=== PATIENT | male | born 1945 ===

== ENCOUNTER 2023-10-06 09:12 | Outpatient (REF) | payer OTHER, SELFPAY | END 2023-10-06 09:13 | disposition home or self-care (01) | LOC: HO.LNP 09:12 | PROVIDERS: PCP Physician Assistant Medical; Referring Provider Physician Assistant Medical; Visit Provider Surgery | DX: D17.9 Benign lipomatous neoplasm, unspecified (principal) | CPT/HCPCS: 11602; 88304; 88305; 88341; 88342; 99202 ==

== ENCOUNTER 2023-10-06 09:12 | Outpatient (AMB) | payer OTHER, SELFPAY ==
--- NOTE | 2023-10-06 09:14 | A.OFFVIS_ITS ---
Vital Signs 10/06/23 09:25 Height 5 ft 5 in Weight 148 lb BMI 24.6 BP 129/63 Blood Pressure Location Rt brachial Position Sitting Pulse 62 Intake Visit Reasons: Cyst of left calf Intake Note: Patient referred by PCP Dr. Meraz for cyst on Lt calf. Present since April 2023. Patient c/o: feels burning sensation when pressing on it. Desk Top Publisher Required: No Accompanied by: spouse Jesse Allergies No Known Allergies Allergy (Verified 10/06/23 09:20) Medication List - Last Reconciled 10/06/23 by Fernando Gusman MD aspirin 81 mg PO DAILY chlorhexidine gluconate 0.12% 10 mL PO TID pantoprazole 40 mg PO DAILY rosuvastatin 40 mg PO DAILY HPI Comments Details: Patient presents with his . He posterior left mid calf mass x2 years time. It is increasing in size, become more symptomatic. He wished to have removed. He has no such lesions elsewhere. Although I think unrelated, he noticed this after his knee replacement proximally 2 years ago. Denies any known trauma to the area. Chart was reviewed and patient evaluated [facility] Medical History (Updated 10/06/23 @ 09:22 by URBAN Reed) Acid reflux HTN (hypertension) Surgical History (Updated 10/06/23 @ 10:15 by Fernando Gusman MD) H/O left knee surgery Family History (Updated 10/06/23 @ 09:24 by URBAN Reed) Father Colon cancer Social History (Updated 10/06/23 @ 09:24 by URBAN Reed) Household Members: Spouse Housing: House Alcohol intake: never Patient Tobacco Use Status: Never used Tobacco Physical Exam Vital Signs: Last Vital Signs Pulse 62 10/06/23 09:25 BP 129/63 10/06/23 09:25 BMI result Body Mass Index 24.6 Extrem Other: Proximally 3 x 2 cm subcutaneous soft tissue mass of left mid posterior calf. Office Procedures Excision Details: Risks, benefits, alternatives of wide local excision of posterior left mid calf mass reviewed the patient and included but not limited to bleeding, infection, recurrence, numbness, pain, scarring, dehiscence, seroma formation and the patient wished to proceed. All questions answered. Consent site. After appropriate positioning, patient underwent % lidocaine and Betadine prep and a longitudinal incision was made over the mass in question which was a multilobulated soft tissue mass consistent grossly with lipoma. This was taken down piecemeal fashion. Specimen measured approximately 3 x 2 cm in total. Wound was irrigated, secured hemostasis, and closed using running subcuticular 3-0 Vicryl suture followed by Steri-Strips and sterile dressings. Patient tolerated procedure well 50480-pecip/arms/legs 2.1-3cm Procedure code (CPT) selection complete Office Meds lidocaine 1 %-epinephrine 1:100,000 injection solution Performing Provider: Fernando Gusman MD Performing Location: [facility] [place] General Surgeons Administered by: Fernando Gusman MD on 10/06/23 10:13 Dose Route Admin Location Dispensed Lot Number Expiration Date [facility] Cleaner Signs 10 mL Infiltration 10 mL Assessment & Plan Assessment & Plan (1) Soft tissue mass: Code(s): M79.89 - Other specified soft tissue disorders Category: Surgical Plan: Patient has been given local instructions, and will follow-up as directed. It is including ice to the wound periodically, Tylenol or Motrin p.r.n. pain, elevate, avoid strenuous activities, it may shower in 2 days removing only outs rodrigue dressing leaving Steri-Strips intact. Plan See above Orders: Orders Surgical Today D17.9 - Benign lipomatous neoplasm, unspecified AMB Excision Today M79.89 - Other specified soft tissue disorders Medications: New lidocaine-epinephrine 1 %-1:100,000 10 mL Infiltration ONCE 30 mL 0RF M79.89 - Other specified soft tissue disorders Coding Level of Care Code New Pt Level 5 (59558) Diagnoses Soft tissue mass M79.89 CPT Codes Trunk/Arms/Legs - CPT: 47214-fownz/arms/legs 2.1-3cm ([id number])
[2023-10-06 09:25] VITALS: BP 129/63; PULSE 62; BMI 24.6
== END 2023-10-06 09:48 | disposition home or self-care (01) ==
PROVIDERS: PCP Physician Assistant Medical; Referring Provider Physician Assistant Medical; Visit Provider Surgery
DX: C49.22 Malignant neoplasm of connective and soft tissue of left lower limb, including hip (principal); M79.89 Other specified soft tissue disorders
CPT/HCPCS: 11602; 99204

== ENCOUNTER 2023-10-13 10:32 | Outpatient (AMB) | payer OTHER, SELFPAY ==
--- NOTE | 2023-10-13 10:48 | A.OFFVIS_ITS ---
Vital Signs 10/13/23 10:51 Height 5 ft 5 in Weight 148 lb BMI 24.6 BP 132/82 Blood Pressure Location Rt brachial Position Sitting Pulse 68 Intake Visit Reasons: s/p exision Cyst of left calf Intake Note: Patient here s/p exc on lt calf. Reports incision healing well. Patient c/o: tenderness but better than it was. Drill Foreman Required: No Accompanied by: Self / Same As Patient Allergies No Known Allergies Allergy (Verified 10/13/23 10:49) HPI Comments Details: Patient presents for follow-up. He has no wound issues or complaints. Results of his lesion pathology were reviewed demonstrating a sock, which requires wide local excision of the original tumor area. 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 All questions answered. 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
[2023-10-13 10:51] VITALS: BP 132/82; PULSE 68; BMI 24.6
== END 2023-10-13 10:59 | disposition home or self-care (01) ==
PROVIDERS: PCP Physician Assistant Medical; Visit Provider Surgery
DX: C49.22 Malignant neoplasm of connective and soft tissue of left lower limb, including hip (principal)
CPT/HCPCS: 99024

== ENCOUNTER → 2023-10-13 10:32 | Outpatient (BNVA) | payer OTHER, SELFPAY | PROVIDERS: PCP Physician Assistant Medical; Visit Provider Surgery | DX: C49.22 Malignant neoplasm of connective and soft tissue of left lower limb, including hip (principal) | CPT/HCPCS: 99212 ==

== ENCOUNTER 2023-11-13 10:50 | Day surgery (SDC) | payer OTHER, SELFPAY ==
[2023-11-10 16:21] VITALS: BMI 23.5
--- NOTE | 2023-11-12 11:14 | MHC.SHP ---
Pre-Procedural Eval Section A - 24 Hr Update-Section A only Date of Service: 11/12/23 The patient is an INPATIENT: No Changes since office visit: No Cold of Flu in the past 2 weeks, No New Medical Problems, No Changes in Medication and No Patient answered all questions Section B - Complete if H&P > 30 days Chief Complaint: Malignant neoplasm of connective and soft tissue Allergies: Allergies Allergy/AdvReac Type Severity Reaction Status Date / Time No Known Allergies Allergy Verified 10/13/23 10:49 Plan I have reviewed the history and physical and performed a pertinent physical examination on my patient. No changes have occurred unless specified. Time Spent With Patient Time: Total time managing care of this patient today ____ minutes.
--- NOTE | 2023-11-12 14:19 | HO.ANESPROP2 ---
Documented by User: Sandy Do NP 11/12/23 14:26 HPI - Anesthesia Eval Consult details Narrative: 78yo M for Left Wide Local Excision Soft Tissue on Posterior Calf [facility]. Last office visit 04/2023, stable for 1 year f/u. 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 (Acute) Soft tissue mass (Acute) Past Medical History Medical History History of gastric cancer Arthritis Cataracts, bilateral Dental root implant present (07/10/23) BPH (benign prostatic hyperplasia) History of nephrolithiasis DJD (degenerative joint disease) History of gastric cancer GERD (gastroesophageal reflux disease) Low back pain Vascular dementia PTSD (post-traumatic stress disorder) AAA (abdominal aortic aneurysm) Elevated cholesterol Acid reflux HTN (hypertension) Family History Family History Father Colon cancer Surgical History Surgical History H/O heart artery stent Hx of colonoscopy History of ureteroscopy (~04/2023) History of total left knee replacement (TKR) (~03/2023) History of gastric surgery History of total right knee replacement (TKR) (~2012) Social History Social History Household Members: Spouse Housing: House Are you a primary patient care provider to a significant other at home: No Do you presently have visiting nurse or other home services: No Alcohol intake: never Patient Tobacco Use Status: Never used Tobacco Use of substances other than those prescribed or required for medical reasons: No Are you DNR?: No Advance Directives: No Advance Directives Information Provided: Yes Advance Directives on File: No Recently lost weight without trying: No Nutrition Risks: No Nutritional Risk Meds Allergies Allergy/AdvReac Type Severity Reaction Status Date / Time No Known Allergies Allergy Verified 10/13/23 10:49 Home Medications ?Medication ?Instructions ?Recorded ?Confirmed ?Last Taken ?Type aspirin 81 mg tablet,delayed 81 mg PO DAILY 10/06/23 11/10/23 Unknown History release rosuvastatin 40 mg tablet 40 mg PO BEDTIME 10/06/23 11/10/23 Unknown History losartan 25 mg tablet 25 mg PO BID 11/10/23 11/10/23 Unknown History memantine 10 mg tablet 10 mg PO QPM 11/10/23 11/10/23 Unknown History nitroglycerin 0.4 mg sublingual 0.4 mg sublingual Q5M PRN Chest 11/10/23 11/10/23 Unknown History tablet Pain omeprazole 20 mg capsule,delayed 20 mg PO DAILY 11/10/23 11/10/23 Unknown History release Exam Height,Weight and Vital Signs: Height 5 ft 5 in Weight 63.957 kg Narrative Narrative: EKG 02/2023 NSR LAD Assessment and Plan Assessment Anesthesia Assessment: Chart Reviewed Documented by User: Jessy De Dios MD 11/13/23 11:47 HPI - Anesthesia Eval Consult details Narrative: 78yo M for Left Wide Local Excision Soft Tissue on Posterior Calf Tumor [facility] 2005. Last office visit 04/2023, stable for 1 year f/u. Medically optimized per [facility] preop clinic prior to TKA 03/2023 Stable at PCP visit 09/202311/13/23: Patient had excisionof Left calf tumor 10/06/23. Pathology revealed high grade sarcoma. For wide local excision PMFSH Past Medical History Medical History History of gastric cancer Arthritis Cataracts, bilateral Dental root implant present (07/10/23) BPH (benign prostatic hyperplasia) History of nephrolithiasis DJD (degenerative joint disease) History of gastric cancer GERD (gastroesophageal reflux disease) Low back pain Vascular dementia PTSD (post-traumatic stress disorder) AAA (abdominal aortic aneurysm) Elevated cholesterol Acid reflux HTN (hypertension) Family History Family History Father Colon cancer Family history of problems with anesthesia: No Surgical History Surgical History H/O heart artery stent Hx of colonoscopy History of ureteroscopy (~04/2023) History of total left knee replacement (TKR) (~03/2023) History of gastric surgery History of total right knee replacement (TKR) (~2012) History of Problems with Anesthesia: No Social History Social History Household Members: Spouse Housing: House Are you a primary patient care provider to a significant other at home: No Do you presently have visiting nurse or other home services: No Alcohol intake: never Patient Tobacco Use Status: Never used Tobacco Use of substances other than those prescribed or required for medical reasons: No Are you DNR?: No Advance Directives: No Advance Directives Information Provided: Yes Advance Directives on File: No Recently lost weight without trying: No Nutrition Risks: No Nutritional Risk Meds Allergies Allergy/AdvReac Type Severity Reaction Status Date / Time No Known Allergies Allergy Verified 10/13/23 10:49 Home Medications ?Medication ?Instructions ?Recorded ?Confirmed ?Last Taken ?Type aspirin 81 mg tablet,delayed 81 mg PO DAILY 10/06/23 11/10/23 Unknown History release rosuvastatin 40 mg tablet 40 mg PO BEDTIME 10/06/23 11/10/23 Unknown History losartan 25 mg tablet 25 mg PO BID 11/10/23 11/10/23 Unknown History memantine 10 mg tablet 10 mg PO QPM 11/10/23 11/10/23 Unknown History nitroglycerin 0.4 mg sublingual 0.4 mg sublingual Q5M PRN Chest 11/10/23 11/10/23 Unknown History tablet Pain omeprazole 20 mg capsule,delayed 20 mg PO DAILY 11/10/23 11/10/23 Unknown History release Exam Height,Weight and Vital Signs: Height 5 ft 5 in Weight 63.957 kg Vital Signs Temp Pulse Resp BP Pulse Ox O2 Del Method 11/13/23 11:20 98.2 F 62 18 121/59 L 96 Room Air Airway Mallampati Class: II TM Dist: >3cm Neck ROM: Full Loose/Missing/Broken Teeth: Yes (Some teeth missing. Denies broken or loose teeth) Heart: RRR Lungs: CTAB Assessment and Plan Assessment Anesthesia Assessment: Anesthesia Plan Discussed and Chart Reviewed Final Anesthetic Review Family History of Problems with Anesthesia: No History of Problems with Anesthesia: No NPO: Yes ASA Class: III Final Preanesthetic Review: No Changes in Pt Med Stat, Meds/Allgs Chart Reviewed, Consent Obtained/Reviewed and Anes Risks/Benef Reviewed Patient Risk: Intermediate Procedure Risk: Low Assessment/Block/Sedation in SS: Assess/Block/Sedation-SS Anesthetic Plan Anesthetic Plan: GA and TIVA Disposition: Standard PACU
[2023-11-13 11:01] VITALS: BMI 24.0
[2023-11-13 11:20] VITALS: BP 121/59; PULSE 62; RESP 18; TEMP 36.8; O2SAT 96
--- NOTE | 2023-11-13 12:30 | W.PM.OPN ---
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 Patient presents for wide local excision. Patient underwent circumferentially 2 cm margin as well as deep margin including the muscle fascia. Final specimen measured approximately 8 x 4 cm. Findings: [] Patient brought to the operating room, placed on operative table supine position, after an adequate level of MAC anesthesia was induced, patient was placed in the prone position. Posterior calf was prepped and draped in usual sterile fashion. Using a longitudinal by elliptical incision to measured 2 cm margin circumferentially, this carried down through skin, subcutaneous tissue, down to muscle fascia which was included in the specimen. Specimen was tagged and sent to pathology for permanent evaluation. Wound was irrigated, secured hemostasis after medial and lateral skin flaps were developed using Bovie. Wound was closed in the following manner; interrupted inverted dermal 3-0 Vicryl sutures followed by Steri-Strips and sterile dressings were applied. Wound was infiltrated at the beginning and at the end with 0.5% Marcaine/1% lidocaine. Sponge, needle, and instrument counts were reported correct. Patient tolerated the procedure well and emerged from anesthesia stable condition. EBL minimal
[2023-11-13 12:34] VITALS: BP 114/60; PULSE 59; RESP 18; TEMP 36.4
[2023-11-13 12:49] VITALS: BP 102/66; PULSE 54; RESP 20; O2SAT 96
[2023-11-13 13:04] VITALS: BP 119/62; PULSE 52; RESP 16; TEMP 36.5; O2SAT 98
--- OUTSIDE RECORDS SUMMARY | 2023-11-14 11:15 | XMS_ITS | Continuity of Care Document ---
Author Organization [facility] Address [address] [place] [address]- Care Team Providers Care Pharmacy Customer Care Specialist Name Role Phone Praful Torres III Primary Care Physician [phone] Encounter 03/23/23 - 03/31/23 [facility] [address] [place] [address]- Discharge Disposition: GOALS MET Allergies, Adverse Reactions, Alerts No Known Allergies Immunizations Given and Recorded Vaccine Date Status Refusal Reason Influenza Virus Vaccine (oldterm) 03/04/19 Recorde d Influenza Virus Vaccine (oldterm) 02/16/19 Recorde d influenza virus vaccine, inactivated 04/11/12 Give n influenza virus vaccine, inactivated 04/11/10 Give n influenza virus vaccine, inactivated 1 03/16/09 Gi je pneumococcal 23-valent vaccine 04/11/12 Given Tet/Diphth/Acel, Pertussis (oldterm) 10/05/08 Give n Pneumococcal Poly (PPV23) (oldterm) 04/14/06 Given diphtheria-tetanus toxoids (DT) 05/09/97 Given 1Admin Note: vis 01/17/09 Medications acetaminophen 325 mg oral tablet 650 mg, By Mouth, Every 6 hours, Refills 0, Maintenance, 03/22/23 7:38:00 EDT, Partial fill upon patient request if the prescription is for a schedule II opioid drug. Start Date: 03/22/23 Status: Ordered aspirin 162.5 mg oral capsule, extended release = 325 mg, By Mouth, 2 times a day, # 60 capsule, 0 Refills, Maintenance, 03/22/23 7:37:00 EDT, ER Capsule, [facility], Partial fill upon patient request if the prescription is for a schedule II opioid drug., 167, cm, 03/22/23 6:32:00 EDT... Start Date: 03/22/23 Stop Date: 04/21/23 Status: Ordered Crestor 40 mg oral tablet 1 tablet = 40 mg, By Mouth, Daily, # 30 tablet, 0 Refills, Maintenance, 01/11/19 15:28:31 EDT Start Date: 01/11/19 Status: Ordered docusate sodium 100 mg oral capsule 1 capsule = 100 mg, By Mouth, 2 times a day, # 60 capsule, 0 Refills, Maintenance, 03/22/23 7:39:00EDT, Capsule, [facility], Partial fill upon patient request if the prescription is for a schedule II opioid drug., 167, cm, 03/22/23 6:32... Start Date: 03/22/23 Status: Ordered losartan 50 mg oral tablet 1 tablet = 50 mg, By Mouth, 2 times a day, # 180 tablet, 3 Refills, Maintenance, 04/25/20 14:01:00 EST, Partial fill upon patient request Start Date: 04/25/20 Status: Ordered memantine 10 mg oral tablet 1 tablet = 10 mg, By Mouth, Daily, # 30 tablet, 0 Refills, Maintenance, 01/18/22 17:34:00 EDT, Tablet, Partial fill upon patient request if the prescription is for a schedule II opioid drug. Start Date: 01/18/22 Status: Ordered omeprazole 20 mg oral enteric coated tablet 1 tablet = 20 mg, By Mouth, Daily, [id number], # 90 tablet, 1 Refills, Maintenance, 11/17/14 13:08:33, 1 tablet By Mouth Daily,x90 days,[id number] Start Date: 11/17/14 Stop Date: 05/16/15 Status: Ordered pantoprazole 40 mg oral delayed release tablet = 40 mg, By Mouth, Daily, # 30 tablet, 0 Refills, Maintenance, 03/22/23 7:39:00 EDT, EC Tablet, 167, cm, 03/22/23 6:32:00 EDT, Height, 66, kg, 03/21/23 17:14:00 EDT, Dry Weight Start Date: 03/22/23 Stop Date: 04/21/23 Status: Ordered Problem List Condition Confirmation Course Effective Dates Status H ealth Status Informant BPH (benign prostatic hypertrophy) Confirmed Active Coronary artery disease (CAD) Confirmed 11/20/05 Active Elevated prostate specific antigen measurement Confirmed Active Esophageal Reflux Confirmed Active GIST (gastrointestinal stromal tumor), 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 History of esophageal stricture Confirmed 1993 Active HTN (hypertension) Confirmed Active Hx of colonic polyp Confirmed 1998 Active Hyperlipidemia NOS Confirmed Active Low back pain Confirmed Active Social History Social History Type Response Smoking Status Never smoker entered on: 11/30/14 Sex Patient Care team information Care Team Personnel Name: Maite Juárez RN Position: [facility] RN Member Role: Primary Care Nurse Name: Praful Torres III Position: Reference Physician Member Role: PCP Address: Address: [address] [place] [id number] Name: Landy Nolan RN Position: S RN Member Role: Primary Care Nurse Name: Cynthia Herrera RN Position: S RN Member Role: Primary Care Nurse Name: Yani Crain RN Position: S RN Member Role: Primary Care Nurse Care Team Related Persons Name: NICOLE SWANN Address: [place] [address] Name: GLORIA SWANN Address: home [address] [place] [address]
--- OUTSIDE RECORDS SUMMARY | 2023-11-14 11:15 | XMS_ITS | Continuity of Care Document ---
Author Organization [facility] Address [address] [place] [address]- Care Team Providers Care Frit Mixer Name Role Phone Dereje THOMPSON, Vipul Gonzales Primary Care Physician [phone] Encounter [facility] Date(s): 03/03/23 - 03/10/23 [facility] [address] [place], [place] [address] Attending Physician: Stewart Dominguez MD Admitting Physician: Stewart Dominguez MD Referring Physician: Dave Nash MD Allergies, Adverse Reactions, Alerts No Known Allergies [...] 05/09/97 Given 1Admin Note: vis 01/17/09 Medications aspirin 81 mg oral tablet 1 tablet = 81 mg, By Mouth, Daily, # 90 tablet, 0 Refills, Maintenance, Tablet Start Date: 06/05/11 Status: Ordered Crestor 40 mg oral tablet 1 tablet = 40 mg, By Mouth, Daily, # 30 tablet, 0 Refills, Maintenance, 01/11/19 15:28:31 EDT Start Date: 01/11/19 Status: Ordered losartan 50 mg oral tablet [...] tablet = 20 mg, By Mouth, Daily, [id number], # 90 tablet, 1 Refills, Maintenance, 11/17/14 13:08:33, 1 tablet By Mouth Daily,x90 days,[id number] Start Date: 11/17/14 Stop Date: 05/16/15 Status: Ordered Problem List Condition Confirmation Course [...] Confirmed Active Low back pain Confirmed Active Vital Signs Most recent to oldest [Reference Range]: 1 Height 167.6 cm (03/03/23 1:45 PM) Weight 63.3 kg (03/03/23 1:45 PM) Oxygen Saturation [94-100 %] 100 % (03/03/23 1:45 PM) Pulse Rate [55-90 bpm] 74 bpm (03/03/23 1:45 PM) Body Mass Index [18.5-24.99 kg/m2] 22.53 kg/m2 (03/03/23 1:45 PM) Blood Pressure [90-138/55-84 mm Hg] 117/ 58mm Hg (03/03/23 1:45 PM) Respiratory Rate [16-30 br/min] 16 br/mi n (03/03/23 1:45 PM) Blood pressure sites Arm, left (03/03/23 1:45 PM) Weight Obtained Via Standing scale (03/03/23 1:45 PM) Social History Social History Type Response Smoking Status Never smoker entered on: 11/30/14 Sex EKG study * Event Display: ECG 12-Lead Authored Date: Please click on pdf link to open report * Event Display: ECG 12-Lead Authored Date: Ventricular Rate: 63 BPM Atrial Rate: 63 BPM P-R Interval: 176 ms QRS Duration: 94 ms Q-T Interval: 416 ms QTC Calculation(Bazett): 425 ms P Sumner: 6 degrees R Sumner: -40 degrees T Sumner: 39 degrees Normal sinus rhythm Left axis deviation Abnormal ECG When compared with ECG of 29-MAY-2012 13:33, Nonspecific T wave abnormality, improved in Lateral leads Confirmed by MARLA KING MD ([id number]) on 03/03/2023 4:06:57 PM [place]: MARLA KING MD Patient Care team information Care Team Personnel Name: Dereje THOMPSON, Vipul Gonzales Position: [facility] Physician - Primary Care Member Role: PCP Address: Address: [address] [place] [address]- Name: Maite Juárez RN Position: [facility] RN Member Role: Primary Care Nurse Name: Cynthia Herrera RN Position: S RN Member Role: Primary Care Nurse Name: Yani Crain RN Position: [facility] RN Member Role: Primary Care Nurse Care Team Related Persons Name: NICOLE SWANN Address: [place] [address] Name: GLORIA SWANN Address: home [address] [place] [address]
--- OUTSIDE RECORDS SUMMARY | 2023-11-14 11:15 | XMS_ITS | Continuity of Care Document ---
Author Organization [facility] ter Address [address] [place] [id number]- Care Team Providers Care Vegetable Farming Supervisor Name Role Phone Mariya FONTANEZ, Praful Yo Primary Care Physician Encounter [facility] Date(s): 02/28/23 - 03/30/[address] [address] Attending Physician: AdmLaurie roman Admitting Physician: Admtr, Ar8 Referring Physician: Admtr, Ar8 Allergies, Adverse Reactions, Alerts No Known Allergies [...] Refills, Maintenance, 03/22/23 7:37:00 EDT, ER Capsule, [facility], Partial fill upon patient [...] capsule, 0 Refills, Maintenance, 03/22/23 7:39:00EDT, Capsule, [facility], Partial fill upon patient [...] tablet = 20 mg, By Mouth, Daily, [id number], # 90 tablet, 1 Refills, Maintenance, 11/17/14 13:08:33, 1 tablet By Mouth Daily,x90 days,[id number] Start Date: 11/17/14 Stop Date: 05/16/15 Status: [...] Team Personnel Name: Maite Juárez RN Position: [facility] SN RN Member Role: Primary Care Nurse Name: Praful Torres III Position: Reference Physician Member Role: PCP Address: Address: [address] [place] [id number]- Name: Landy Nolan RN Position: S RN Member Role: Primary Care Nurse Name: Cynthia Herrera RN Position: S RN Member Role: Primary Care Nurse Name: Yani Crain RN Position: S RN Member Role: Primary Care Nurse Care Team Related Persons Name: NICOLE SWANN Address: [place] [address] Name: GLORIA SWANN Address: home [address] [place] [address]
--- OUTSIDE RECORDS SUMMARY | 2023-11-14 11:15 | XMS_ITS | Continuity of Care Document ---
Author Organization [facility] Address [address] [place] [address]- Care Team Providers Care Green Inspector Name Role Phone Mariya FONTANEZ, Praful Yo Primary Care Physician [phone] Encounter [facility] [place] [id number] Date(s): 03/03/23 - 04/02/23 [facility] [address] [place] [address]- Attending Physician: AdmLaurie roman Admitting Physician: Admtr, [...] Refills, Maintenance, 03/22/23 7:37:00 EDT, ER Capsule, [facility], Partial fill upon patient [...] capsule, 0 Refills, Maintenance, 03/22/23 7:39:00EDT, Capsule, [facility], Partial fill upon patient [...] tablet = 20 mg, By Mouth, Daily, [id number], # 90 tablet, 1 Refills, Maintenance, 11/17/14 13:08:33, 1 tablet By Mouth Daily,x90 days,[id number] Start Date: 11/17/14 Stop Date: 05/16/15 Status: [...] Team Personnel Name: Maite Juárez RN Position: [facility] SN RN Member Role: Primary Care Nurse Name: Praful Torres III Position: Reference Physician Member Role: PCP Address: Address: [address] [place] [id number]- Name: Landy Nolan RN Position: S RN Member Role: Primary Care Nurse Name: Cynthia Herrera RN Position: S RN Member Role: Primary Care Nurse Name: Yani Crain RN Position: S RN Member Role: Primary Care Nurse Care Team Related Persons Name: NICOLE SWANN Address: [place] [address] Name: GLORIA SWANN Address: home [address] [place] [address]
--- OUTSIDE RECORDS SUMMARY | 2023-11-14 11:15 | XMS_ITS | Continuity of Care Document ---
Author Organization [facility] ter Address [address] [place] [id number]- Care Team Providers Care Pelletising Extruder Operator Name Role Phone Vipul Reyez MD Primary Care Physician Encounter [facility] Date(s): 07/29/19 - 07/29/[address] [address]- [facility] Attending Physician: Vipul Reyez MD Allergies, Adverse Reactions, Alerts Substance Reaction Severity Status NKA Active Immunizations Given and Recorded Vaccine Date Status Refusal Reason Influenza Virus Vaccine (oldterm) 03/04/19 Recorde d influenza virus vaccine, inactivated 04/11/12 [...] 15:28:31 EDT Start Date: 01/11/19 Status: Ordered Flomax 0.4 mg oral capsule 0.4 mg, 1, capsule, By Mouth, Daily, # 15 capsule, Refills 0, Tot. Refills 0, Maintenance, 195:06:05 EST, Print Requisition Start Date: 05/05/19 Status: Ordered losartan 25 mg oral tablet 25 mg, 1, tablet, By Mouth, Daily, # 30 tablet, Refills 0, Maintenance, 01/11/19 15:08:46 EDT Start Date: 01/11/19 Status: Ordered omeprazole 20 mg oral enteric coated tablet 1 tablet = 20 mg, By Mouth, Daily, [id number], # 90 tablet, 1 Refills, Maintenance, 11/17/14 13:08:33, 1 tablet By Mouth Daily,x90 days,[id number] Start Date: 11/17/14 Stop Date: 05/16/15 Status: Ordered Zetia 10 mg oral tablet 1 tablet = 10 mg, By Mouth, Daily, # 90 tablet, 3 Refills, Maintenance, 07/29/19 20:46:00 EST, Tablet, [id number], 168, cm, 07/16/19 11:36:00 EST, Height, 68.2, kg, 05/07/19 7:36:00 EST, Dry Weight Start Date: 07/29/19 Status: Ordered Zofran ODT 4 mg oral tablet, disintegrating 1 tablet = 4 mg, By Mouth, 3 times a day, (allow tablet to dissolve on tongue), # 10 tablet, 0 Refills, Maintenance, 05/05/19 5:06:13 EST Start Date: 05/05/19 Status: Ordered Problem List Condition Effective Dates Status Health Status Inform ant BPH (benign prostatic hypertrophy)(Confirmed) Active Coronary artery disease (CAD)(Confirmed) 11/20/05 Active Elevated prostate specific a ntigen measurement(Confirmed) Active Esophageal Reflux(Confirmed) Active GIST (gastrointestinal edenilson al tumor), 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
--- OUTSIDE RECORDS SUMMARY | 2023-11-14 11:15 | XMS_ITS | Continuity of Care Document ---
Author Organization [facility] ter Address [address] [place] [id number]- Care Team Providers Care Sales And Marketing Intern Name Role Phone Mariya FONTANEZ, Praful Yo Primary Care Physician [phone] Encounter [facility] Date(s): 03/21/23 - 03/22/[address] [address] Discharge Disposition: A-Transfer VNA/Home Health Attending Physician: Dave Nash MD Admitting Physician: Dave Nash MD Referring Physician: Dave Nash MD Allergies, [...] opioid drug. Start Date: 03/22/23 Status: Ordered Acetaminophen Tablet 650 mg, Tablet, By Mouth, 03/22/23 10:00:00 EDT Start Date: 03/22/23 Stop Date: 03/22/23 Status: Completed aspirin 162.5 mg oral capsule, extended release = 325 mg, By Mouth, 2 times a day, # 60 capsule, 0 Refills, Maintenance, 03/22/23 7:37:00 EDT, ER Capsule, [facility], Partial fill upon patient request [...] capsule, 0 Refills, Maintenance, 03/22/23 7:39:00EDT, Capsule, [facility], Partial fill upon patient request [...] tablet = 20 mg, By Mouth, Daily, [id number], # 90 tablet, 1 Refills, Maintenance, 11/17/14 13:08:33, 1 tablet By Mouth Daily,x90 days,[id number] Start Date: 11/17/14 Stop Date: 05/16/15 Status: Ordered oxyCODONE 5 mg oral tablet See Instructions, PRN, 1-2 tablets By Mouth Every 4 hours, # 84 tablet, Refills 0, Tot. Refills 0, Acute 03/28/23 7:41:00 EDT, Pain , Moderate, 03/22/23 7:40:00 EDT, Instructions Replace Required Details, Route to Pharmacy Electronically, [facility]... Start Date: 03/22/23 Stop Date: 03/28/23 Status: Ordered pantoprazole 40 mg oral delayed release tablet = 40 mg, By Mouth, Daily, # 30 tablet, 0 Refills, Maintenance, 03/22/23 7:39:00 EDT, EC Tablet, 167, cm, 03/22/23 6:32:00 EDT, Height, 66, kg, 03/21/23 17:14:00 EDT, Dry Weight Start Date: 03/22/23 Stop Date: 04/21/23 Status: Ordered traMADol 50 mg oral tablet See Instructions, PRN Pain , Mild, 1-2 tablets By Mouth Every 6 hours, # 56 tablet, 0 Refills, Acute 03/28/23 7:41:00 EDT, 03/22/23 7:41:00 EDT, Tablet, [facility], Partial fill upon patient request if the prescription is for a schedule... Start Date: 03/22/23 Stop Date: 03/28/23 Status: Ordered Problem List Condition Confirmation Course [...] Confirmed Active Low back pain Confirmed Active Results Radiology Reports * Exam Date Time Procedure Performing Provider Status 03/21/23 3:40 PM Knee 1 or 2 Views Left Winston Velasquez ine; Auth (Verified) Notes: (Knee 1 or 2 Views Left) Reason For Exam: Postop RESULT: Knee 1 or 2 Views Left Knee 1 or 2 Views Left, views Reason: Postop; Clinical Question(s): Other:; Implant Position; Special Instructions: Do today in pacu No flexed knee in the lateral position. Keep leg straight; 2 Views COMPARISON: 10/17/2008 FINDINGS: A total left knee arthroplasty is in place. The hardware parallels one another. There is no fracture. There is a stable 1.5 cm well-corticated bony density adjacent to the anterior aspect of the tibial plateau. IMPRESSION: Well seated total left knee arthroplasty. WSN: [id number] Ordering Physician: Carroll Aguilar V Dictated By: Daniel Martínez MD Dictated Date/Time: 03/21/23 3:46 pm Reviewed By: Daniel Martínez MD Signed By: Daniel Martínez MD Signed Date/Time: 03/21/23 3:46 pm Transcribed By: ARLETH Transcribed Date/Time: 03/21/23 3:45 pm Vital Signs Most recent to oldest [Reference Range]: 1 2 3 Height 167 cm (03/22/23 12:00 PM) 167 cm (03/22/23 6:32 AM) 167 cm (03/22/23 3:48 AM) Weight 66 kg (03/21/23 5:14 PM) 65.3 kg (03/21/23 10:00 AM) Oxygen Saturation [94-100 %] 99 % (03/22/23 12:00 PM) 99 % (03/22/23 6:32 AM) 97 % (03/22/23 3:48 AM) Pulse Rate [55-90 bpm] 70 bpm (03/22/23 12:00 PM) 61 bpm (03/22/23 6:32 AM) 65 bpm (03/22/23 3:48 AM) Body Mass Index [18.5-24.99 kg/m2] 23.67 kg/m2 (03/21/23 5:14 PM) 23.41 kg/m2 (03/21/23 10:00 AM) Blood Pressure [90-138/55-84 mm Hg] 126/60mm Hg (03/22/23 12:00 PM) 119/67mm Hg (03/22/23 6:32 AM) 123/66mm Hg (03/22/23 3:48 AM) Respiratory Rate [16-30 br/min] 18 br/min (03/22/23 12:00 PM) 18 br/min (03/22/23 11:49 AM) 18 br/min (03/22/23 6:32 AM) Temperature [96.8-100.4 DegF] 97.5 DegF (03/22/23 12:00 PM) 97.8 DegF (03/22/23 6:32 AM) 97.9 DegF (03/22/23 3:48 AM) Liters per Minute 5 L/min (03/21/23 3:15 PM) Mode of Delivery (Oxygen) Room air (03/22/23 12:00 PM) Room air (03/22/23 6:32 AM) Room air (03/22/23 3:48 AM) Blood pressure sites Arm, right (03/22/23 12:00 PM) Arm, right (03/22/23 6:32 AM) Arm, right (03/22/23 3:48 AM) Temperature Route Oral (03/22/23 12:00 PM) Oral (03/22/23 6:32 AM) Axillary (03/22/23 3:48 AM) Dry Weight 66 kg (03/21/23 5:14 PM) 65.3 kg (03/21/23 10:00 AM) Weight Obtained Via Standing scale (03/21/23 10:00 AM) Dry Weight Obtained Via Standing scale (03/21/23 10:00 AM) Social History Social History Type Response Smoking Status Never smoker entered on: 11/30/14 Sex History and physical note * Event Display: History and Physical Hospital Authored Date: Note * Event Display: Adult Preadmission Health Questionnaire Authored Date: * Lucia Nelson RN: PERFORM Event Display: Discharge/Transfer Note Hospital Authored Date: [id number] Nursing Discharge Note Entered On: 03/22/2023 13:55 EDT Performed On: 03/22/2023 13:55 EDT by Lucia Nelson RN Nursing Discharge Note 2 Discharge Time : 03/22/2023 13:50 EDT Discharge Level of Care at Discharge : Homehealth/VNA Discharge VNA/Hospice/Home Care(v001) : [facility] [phone] Patient Left Unit Via : Wheelchair Patient Accompanied Off Unit with : Significant other DC Instructions Provided & Signed by Pt : Yes Patient Understands D/C Instructions : Yes Patient Instructions Discharge Signed : Yes Did Pt have Specialty Bed or Wound Vac : No Lucia Nelson RN - 03/22/2023 13:55 EDT * Michelle Patel: PERFORM Event Display: Discharge/Transfer Note Hospital Authored Date: [id number] Admission Date: 03/21/23 Discharge Date: 03/22/23 Admitting Diagnosis: left knee osteoarthritis Discharge Diagnosis: left knee osteoarthritis Final Diagnosis: left knee osteoarthritis Procedure: left total knee arthroplasty Surgeon: Dr. Nash Past Medical History: 1. Osteoarthritis of the left knee. 2. Hypertension. 3. Hyperlipidemia. 4. GERD. 5. Esophageal dysphagia. 6. History of kidney stones. 7. CAD, status post PCI in 2005. 8. BPH. 9. PTSD. 10. History of hematuria. 11. Chronic fatigue. 12. Vascular dementia. 13. History of gastric cancer, status post tumor removal. 14. Cataracts. 15. Chronic kidney disease stage III with preoperative creatinine 1.7, BUN 21, GFR 41. 16. Prediabetes with preoperative A1c 5.7. Orthopedics: The patient is status post left total knee arthroplasty. It is anticipated that they will be discharged home today pending PT, OT clearance. The patient is doing well from a surgical standpoint. Incision is healing well. Neurovascular status is intact. Calves are supple and non tender.Making good progress with Physical Therapy and Occupational therapy. Supervision with ambulation ambulating with a walker. ROM . Pain is well controlled on current regimen, Oxycodone, Tramadol, and Tylenol. Patient is tolerating this well. They will be sent home with a prescription for this medication. Prescription: Tramadol 50 mg tablet. Take 1-2 tablets every 6 hours as needed for pain x 7 days. # 56 tablet. Oxycodone IR 5mg tablet. Take 1-2 tablets every 4 hours as needed for pain x 7 days. # 84 tablet. Hospital course: Relatively uneventful medically. Pain is controlled now. Patient is voiding spontaneously. + bowel sounds. . No other issues. No calf tenderness. Current Medication List: Acetaminophen (acetaminophen 325 mg oral tablet) 650 Milligram By Mouth Every 6 hours Aspirin (aspirin 162.5 mg oral capsule, extended release) 325 Milligram By Mouth 2 times a day for 30 Days Docusate (docusate sodium 100 mg oral capsule) 1 capsule 100 Milligram By Mouth 2 times a day Losartan (losartan 50 mg oral tablet) 1 tab(s) 50 Milligram By Mouth 2 times a day Memantine (memantine 10 mg oral tablet) 1 tab(s) 10 Milligram By Mouth Daily Omeprazole (omeprazole 20 mg oral enteric coated tablet) 1 tab(s) 20 Milligram By Mouth Daily for 90 Days [id number] Oxycodone (oxyCODONE 5 mg oral tablet) See Instructions as needed 1-2 tablets By Mouth Every 4 hours Pain , Moderate Pantoprazole (pantoprazole 40 mg oral delayed release tablet) 40 Milligram By Mouth Daily for 30 Days Rosuvastatin (Crestor 40 mg oral tablet) 1 tab(s) 40 Milligram By Mouth Daily Tramadol (traMADol 50 mg oral tablet) See Instructions as needed Pain , Mild 1-2 tablets By Mouth Every 6 hours Allergies: Allergies (Active and Proposed Allergies Only) NKA (Severity: Unknown severity, Onset: Unknown) Current Labs: Last 24 Hours Basic Metabolic Panel: Hematology: Sodium: 135 mmol/L (03/22/23) Hgb: 12.5 Gm/dL (03/22/23) Potassium (POC): 4.6 mmol/L (03/22/23) Hemoglobin A1C (Monitoring): ------ Phosphorus: ------ WBC: 10.4 k/mm3 (03/22/23) Magnesium: ------ Platelets: 161 k/mm3 (03/22/23) BUN (POC) POC Cartridge: 21 mg/dL (03/22/23) INR Level: ------ Creatinine-Blood: 1.4 mg/dL (03/22/23) Creatinine Clearance: ------ Additional - Last 24 Hours Abs. NRBC: 0.0 k/mm3 (03/22/23) Anion Gap: 11 (03/22/23) Bicarbonate Level: 20 mmol/L (03/22/23) BUN: BUN (03/22/23) Chloride: 104 mmol/L (03/22/23) Creatinine, Blood: Creatinine, Blood (03/22/23) Est Creatinine Clearance: 40.14 (03/22/23) Estimated GFR Creatinine: 52 ML/MIN/1.73 M2 (03/22/23) Hct: 39.3 % (03/22/23) MCH: 29.4 pg (03/22/23) MCHC: 31.8 g/dL (03/22/23) MCV: 92.5 femtoliters (03/22/23) MPV: 12.3 femtoliters (03/22/23) Nucleated RBC (Automated): 0.0 #/100 WBC'S (03/22/23) RBC: 4.25 m/mm3 (03/22/23) RDW-SD: 42.5 femtoliters (03/22/23) DVT prophylaxis ASA EC 325 mg po bid x 30 days Disposition: Anticipates being discharged today to home. Follow up at [facility] in 2 weeks. Patient is aware of this. The patient has an Aquacel dressing in place. They may shower with it and the dressing can be discontinued on POD 14. *Denotes mandatory hart *I certify that this patient is under my care and that I or an allowed non- physician working with me had a face to face encounter with the patient on this date: 03/22/2023 07:45 *The encounter with the patient was in whole, or in part, for the following medical condition, which is the primary diagnosis(es) for home health care: *Select the indications for the discipline/s that are being arranged for this patient. Nursing (select all that apply): [_] None [_] Medication management (reconciliation, teaching) [_] Chronic disease management [_] Wound care and treatment [_] Home safety evaluation [_] Administer SQ/IM/IV medications [_] Cath care [_] Drain care [_] Trach or GT care Other _ Occupation Therapy (select all that apply): [_] None [_] ADL Management [_] Fall prevention training [_] Energy conservation [_] Cognitive training Other _ Physical Therapy (select all that apply): [_] None [X_] Functional mobility training [X_] Home exercise program to strengthen [X_] Increase ROM [_] Falls prevention training [_] Home maintenance program for chronic disease Other _ Speech Therapy (select all that apply): [_] None [_] Swallow evaluation and training [_] Speech and language training [_] Cognitive training to process, organize, and/or recall information Other _ *Homebound due to (select all that apply): [_] Inability to leave home without assistance/supervision [X_] Inability to ambulate without assistance [X_] Pain [_] Decreased strength and endurance [X] Unsteady gait [_] Severe SOB and fatigue [_] Impaired transfers [_] Inability to negotiate stairs [_] Limited weight bearing [_] Mental status change *Physician Signature: _ *By signing this, I certify that I have personally evaluated the patient and agree with the findings and recommendations as documented above. * Ovidio YANEZ, Landy: PERFORM Event Display: Patient Education/Instruction Authored Date: Inpatient Adult Discharge Instructions [address] [address] Name: FERNANDA SWANN : 1945 Visit: 03/21/2023 09:02:00 Current Date: 03/22/2023 11:43 Account: [id number] Inpatient Adult Discharge Instructions We would like to thank you for allowing us to assist you with your healthcare needs. The following includes patient education materials and information regarding your injury/illness. Our entire staffstrives to provide an excellent experience for our patients and their families. PLEASE ENSURE YOU FOLLOW-UP PER THE INSTRUCTIONS BELOW! ?? YOUR OPINION IS IMPORTANT TO US! Please complete the survey you may receive by mail or email. Your feedback will be used to make improvements to the healthcare experiences of our patients and their families. Surveys are administered by [employer] ?? If further treatment with your primary care physician or another doctor is recommended, it is important for you to keep the appointment. Call your primary care physician or return to the Emergency Department immediately if your condition worsens, fails to improve, or new symptoms develop. If you need to find a doctor, you can call [facility] Link for a referral at [phone] or toll free at [phone] or log in to [email or web address].. ?? [facility], in keeping with [facility] guidance, no longer requires face masks for staff, patientsor visitors in most situations. Similiar to time spent indoors at other locations, there is the chance that you were exposed to repiratory viruses during your time with us (such as flu or COVID-19). If you develop symptoms concerning for a viral respiratory infection, please seek testing (and treatment if indicated) from your medical provider or home test kit. ?? You can view and manage your care through the patient portal or by using a health care monty of your choosing. [employer] is a website that allows you to securely view your medical information including your hospital discharge summary, office visit summaries, medications and follow-up visits. You can also request appointments, renew medications, and request access to your medical information using a health care monty of your choosing, or just ask a question. You can enroll at [email or web address] or register during your next office visit. You have been discharged from [facility], Patient Care Unit: SW7. If you have any questions regarding these instructions after you leave, please call us and we will be happy to assist you. [facility] Your Care Team Attending Physician Saad THOMPSON, Dave Martínez Discharging Providers Michelle Patel Reason for Admission OA LEFT KNEE 23 HR Tests Performed Below is a partial list of the tests performed during your hospitalization. You may have had other tests and procedures not included in this list. Please discuss all test results with your provider. BUN CBC Creatinine Electrolytes XR Knee 1 or 2 Views Left Primary Care Provider Praful Torres III Advance Directive Health Care Proxy on File Yes - Health Care Proxy Discharge Vitals Temperature: 97.8 DegF Height: 167 cm Pulse Rate: 61 bpm Weight: 66 kg Respiratory Rate: 18 br/min Body Mass Index: 23.67 kg/m2 Systolic Blood Pressure: 119 mm Hg Body surface area: 1.75 Diastolic Blood Pressure: 67 mm Hg ?? Oxygen Saturation: 99 % ?? Studies Pending All tests and labs ordered during this hospital stay have been completed unless listed below. Please discuss all pending results with your provider listed above in these instructions. ?? BUN CBC Creatinine Electrolytes What to do next Instructions From Your Doctor Discharge Orders Scheduled Follow-Up Appointments 2022 10:00 AM EST ?? Where: [facility] [address] [address]- Status: Pending Discharge Medications FERNANDA SWANN :1945 Visit Date:03/21/2023 Medications: Please continue your medications until treatment is completed or stopped by your provider. Medications not listed below should be discontinued. Discuss any questions related to medications with your provider. What How Much When Instructions Next Dose New Acetaminophen (acetaminophen 325 mg oral tablet) 650 Milligram Oral Every 6 hours 03/22 4:30PM New Docusate (docusate sodium 100 mg oral capsule) 1 capsule Oral Twice a day Pickup at [place] [address] 03/22 8:00PM New Oxycodone (oxyCODONE 5 mg oral tablet) See instructions 1-2 tablets By Mouth Every 4 hours, As needed for Pain , Moderate ?? Pickup at [place] [address] Have not taken this admission New Pantoprazole (pantoprazole 40 mg oral delayed release tablet) 40 Milligram Oral Daily Duration: 30 Days Pickup at [place] [address] 03/23 9:00AM New Tramadol (traMADol 50 mg oral tablet) See instructions 1-2 tablets By Mouth Every 6 hours, As needed for Pain , Mild ?? Pickup at [place] [address] Last dose here 4:00AM 03/22 Take as needed for mild pain Changed Aspirin (aspirin 162.5 mg oral capsule, extended release) 325 Milligram Oral Twice a day Duration: 30 Days Pickup at [place] [address] 03/23 9:00AM Unchanged Losartan (losartan 50 mg oral tablet) 1 tab(s) Oral Twice a day 03/22 8:00PM Unchanged Memantine (memantine 10 mg oral tablet) 1 tab(s) Oral Daily 03/23 9:00AM Unchanged Omeprazole (omeprazole 20 mg oral enteric coated tablet) 1 tab(s) Oral Daily Duration: 90 Days [id number] ?? 03/23 9:00AM Unchanged Rosuvastatin (Crestor 40 mg oral tablet) 1 tab(s) Oral Daily 03/23 9:00AM Pharmacy Information [facility]: [address], [place] [id number] [phone] Test Results Below is a partial list of the most recent Laboratory test results done prior to this discharge. You may have had other tests and procedures not included in this list. Please discuss all test resultswith your provider. Est Creatinine Clearance - 40.14 mL/min (03/22/2023) BUN (03/22/2023) ???BUN - 21 mg/dL CBC (03/22/2023) ???WBC - 10.4 k/mm3???RBC - 4.25 m/mm3???Hgb - 12.5 Gm/dL???Hct - 39.3 %???MCV - 92.5 femtoliters???MCH - 29.4 pg???MCHC - 31.8 g/dL???Platelet Count - 161 k/mm3???RDW-SD - 42.5 femtoliters???MPV - 12.3 femtoliters???Nucleated RBC (Automated) - 0.0 #/100 WBC'S???Abs. NRBC - 0.0 k/mm3 Creatinine (03/22/2023) ???Creatinine-Blood - 1.4 mg/dL???Estimated GFR Creatinine - 52 ML/MIN/1.73 M2 Electrolytes (03/22/2023) ???Sodium - 135 mmol/L???Potassium - 4.6 mmol/L???Chloride - 104 mmol/L???Bicarbonate Level - 20 mmol/L???Anion Gap - 11 Allergies (NKA means No Known Allergies) NKA Problems Active Problems??(10) BPH (benign prostatic hypertrophy)?? Coronary artery disease (CAD)?? Elevated prostate specific antigen measurement?? Esophageal Reflux?? GIST (gastrointestinal stromal tumor), malignant?? History of esophageal stricture?? HTN (hypertension)?? Hx of colonic polyp?? Hyperlipidemia NOS?? Low back pain?? Education Materials Below is the list of Educational Leaflet Providered with your Discharge Instructions. Total Knee Replacement Discharge Instructions?? Valuables and Belongings I fully understand and agree that [facility] accepts no responsibility for all my personal property including clothing, toilet articles, radios, jewelry, dentures, hearing aids, rings, money, or any other property that is in my possession or is brought to me after admission. I understand certain valuables may be placed in a hospital safe for a short period of time. I understand that the hospital is not liable for loss or damage due to accident, fire, or other natural occurrence while said property is in the safe. I accept full responsibility for any personal property that I keep with me, and will not hold the hospital responsible in case of loss or disappearance. I acknowledge that i have been encouraged to send valuables and belongings home. ?? Review of Valuable and Belonging List: With patient Disposition of Belongings: Other: panu locker Date for Pt to Sign Valuables/Belongings: 03/21/23 17:27:00 ?? Other Discharge Information ? Case Management Discharge Plan?? Discharge Plan?? Discharge Agency Information?? Discharge Level of Care at Discharge: Homehealth/VNA Service Categories #1: Physical Therapy Discharge VNA/Hospice/Home Care: [facility] [phone] Service Comments #1: [facility] will contact you to set up a visit time after discharge. Please call [phone] if you don't hear from them. ?? Pulmonary Rehab Status?? Pulmonary Rehab Discharge Status?? Respiratory Rate: 18 br/min ? Common Emergency Awareness Tips IS IT A STROKE? Act FAST and Check for these signs: FACE Does the face look uneven? ARM Does one arm drift down? SPEECH Does their speech sound strange? TIME Call at any sign of stroke ?? Heart Attack Signs Chest discomfort: Most heart attacks involve discomfort in the center of the chest and lasts more than a few minutes, or goes away and comes back. It can feel like uncomfortable pressure, squeezing, fullness or pain. Discomfort in upper body: Symptoms can include pain or discomfort in one or both arms, back, neck, jaw or stomach. Shortness of breath: With or without discomfort. Other signs: Breaking out in a cold sweat, nausea, or lightheaded. Remember, MINUTES DO MATTER. If you experience any of these heart attack warning signs, call to get immediate medical attention! ?? Smoking can increase your chances of developing chronic health problems and can cause harmful effects to other family members in your house. If you smoke, you are strongly encouraged to quit. Please call [facility] Link at [phone] or [phone] ([phone]) or log in to [email or web address] for referrals to smoking cessation programs. ?? 662 Suicide & Crisis Lifeline is available 30/12 if you or someone you know needs to find a reason to keep living. By calling 045 you'll be connected to a skilled, trained counselor at a crisis center in your area. INPATIENT DISCHARGE INSTRUCTIONS SIGNATURE PAGE FERNANDA SWANN Location:[facility] Registration Date and Time:03/21/2023 09:02 EDT Primary Care Physician: Praful Torres III, Attending Physician: Saad THOMPSON, Dave Martínez, I FERNANDA SWANN, have received the above patient education materials/instructions and have verbalized understanding. If ambulance or transport services are being used I further acknowledge being given a choice of service. ?? If you need to contact me, please call me at this number: . Patient/Database Consultant Name: Patient/Database Consultant Signature: Relationship to Patient: Witness Name/Signature: Date: * Landy Nolan RN: PERFORM Event Display: Patient Education Leaflets Authored Date: [id number] Total Knee Replacement Discharge Instructions ?? 667 Total Knee Replacement Discharge Instructions ??? Please read and review your Total Knee Replacement Book for detailed information ??? Your appetite may be decreased but try to maintain a good balanced diet ?? Ice and elevation ?Ice is important to help keep swelling down. ?Keep elevated as much as possible. ?Ice the knee 4 times a day for 20 minutes each time. Be sure not to put the ice/ice pack directly on your skin. Use a dish towel or something similar between the ice and your skin. ??? Moving ? Get up and walk frequently. ??? Do 20 ankle pumps every hour. ??? Complete your exercises 4times a day, bending and straightening your knee ??? Begin exercises the evening you go home ??? Moving is especially important. This helps to prevent blood clots. Take short frequent walks. ? Wear your knee brace when walking until your surgeon or physical therapist tells you to stop. ??? You may sleep with or without the brace and sleep anyway you are comfortable. ??? Place a pillow underthe ankle/lower leg when lying down to help with extension of your knee. ??? Do not put a pillow under your knee ??? Continue to move your foot up and down, this exercise helps to prevent blood clotsand to help reduce swelling in your knee ??? No driving until approved by your surgeon ?? Incision ?Your incision is closed with absorbable stitches and surgical glue. ?The dressing iswaterproof. You may shower the next day. ??? You may develop some discoloration around your incision (yellowish or bruising) ??? Your dressing will stay on for 1-2 weeks ?You cannot go in a bath, pool, ocean, pond, dawn or jacuzzi for 6 weeks. This is to reduce your risk of infection ? You may have some numbness around the incision. This is normal and will improve with time. Some patients have numbness that does not completely go away. ?? When to call the Surgeon?CALL [phone] ?If you have shortness of breath or chest pain, call [phone] or go to the nearest emergency department. ??? If you have drainage and/or redness around your wound. ?If you have a fever greater than 101.5 (38.5 degrees Celsius). ?If you have persistent calf pain or swelling (This couldbe a blood clot). ??? If your pain is worsening. ? If you have any difficulty with urination or burning with urination ? Cardiology * Event Display: Cardiac Rhythm Strips Authored Date: Hospital Progress note * Landy Nolan RN: PERFORM, SIGN, VERIFY Event Display: Progress Note Hospital Authored Date: Patient: FERNANDA WSANN Age: 77 years Sex: Male : 1945 Associated Diagnoses: None Author: Landy Nolan RN Findings Problem Related to Alteration in Musculoskeletal : Alteration in Musculoskeletal Func/new 03/22/2023 9:00 EDT Alteration in Musculoskeletal Related to Total joint replacement, Other: Left TKR 03/21/23 Goals & Outcomes, Musculoskeletal Affected extremity will maintain color/motion/sensation, Pt able to perform ADL's to best of ability, Pt demonstrates precautions/exercise/ transfers per protocol, Pt will ambulate safely with assistive device, Pt will be free from complications of immobility, Pt will demonstrate ability to participate in ADL's, Pt will report acceptable level of comfort/painrelief Interventions, Musculoskeletal Monitor patients ambulation status, monitor Color/Motion/Sensation, Assist with repositioning, Encourage deep breathing & coughing exercises, Notify MD immediately if tissue perfusion deteriorates, Obtain assistive devices as needed, Teach & Encourage use of Incentive spirometer, Teach Pt/caregiver on ADL's & adaptive equipment, Teach Pt/caregiver on exercises, Teach pt/caregiver on use of pain scale, Teach Pt/caregiver complications of immobility, Teach Pt/caregiver techniques to increase mobility, Teach Pt/caregiver on safety precautions BH Goals/Interventions, Musculoskeletal Yes Musculoskeletal, Problem Start 03/21/2023 17:37 Reviewed Plan with, Musculoskeletal Patient Patient Progression, Musculoskeletal Pt progressing according to plan . Evaluation P: Alteration in musuloskeletal system I: See above for updated careplan E: Patient POD #[address] Nash. Patient with +PF/DF, +pedal pulses, +CMS bilaterally to lowerextremities. Aquacell to left knee clean, dry and intact. Patient using CPM machine per provider. Patient with no reports of pain, patient medicated with scheduled Tylenol this shift. Will continue to monitor pain level. Patient ambulating with standby assist with rolling walker and knee immobilizer. Patient voiding in urinal. Patient with soft, nontender abdomen, LBM 03/19. Patient medicated with bowel medications. Patient to be seen by PT/OT this AM, to be discharged home with services when cleared. . Discharge Information Case Management Discharge Plan : Case Management Discharge Plan Data 03/21/2023 12:46 EDT Discharge Level of Care at Discharge Homehealth/VNA Discharge VNA/Hospice/Home Care [facility] [phone] Service Categories #1 Physical Therapy Service Comments #1 [facility] will contact you to set up a visit time after discharge. Please call [phone] if you don't hear from them. * Saad THOMPSON, Dave P: PERFORM Event Display: Progress Note Hospital Authored Date: [id number] no c/o, pain well controlled, herman po AVSS dressing c/d/i calf soft NV intact A/P POD#1 s/p L TKA doing well PT DVT prophylaxis d/c home today * Jen Martinez RN: PERFORM, SIGN, VERIFY Event Display: Progress Note Hospital Authored Date: [id number] Patient: FERNANDA SWANN Age: 77 years Sex: Male : 1945 Associated Diagnoses: None Author: Jen Martinez RN Findings Problem Related to Alteration in Musculoskeletal : Alteration in Musculoskeletal Func/new 03/21/2023 22:30 EDT Alteration in Musculoskeletal Related to Total joint replacement, Other: Left TKR 03/21/23 Goals & Outcomes, Musculoskeletal Affected extremity will maintain color/motion/sensation, Pt able to perform ADL's to best of ability, Pt demonstrates precautions/exercise/ transfers per protocol, Pt will ambulate safely with assistive device, Pt will be free from complications of immobility, Pt will demonstrate ability to participate in ADL's, Pt will report acceptable level of comfort/painrelief Interventions, Musculoskeletal monitor Color/Motion/Sensation, Assist with repositioning, Encouragedeep breathing & coughing exercises, Obtain assistive devices as needed, Teach & Encourage use of Incentive spirometer, Teach Pt/caregiver on exercises, Teach pt/caregiver on use of pain scale, Teach Pt/caregiver complications of immobility, Teach Pt/caregiver techniques to increase mobility, Teach Pt/caregiver on safety precautions BH Goals/Interventions, Musculoskeletal Yes Musculoskeletal, Problem Start 03/21/2023 17:37 Reviewed Plan with, Musculoskeletal Patient Patient Progression, Musculoskeletal Pt progressing according to plan . Nursing Data Vital Signs : VITAL SIGNS SECTION 03/21/2023 23:17 EDT Temperature 97.8 DegF Temperature Route Oral Pulse Rate 71 bpm Respiratory Rate 16 br/min Systolic Blood Pressure 125 mm Hg Diastolic Blood Pressure 64 mm Hg Blood pressure sites Arm, right Mean Arterial Pressure 84 mm Hg Pulse Pressure 61 mm Hg Oxygen Saturation 100 % Mode of Delivery (Oxygen) Room air . Narrative/Incidental Pt is POD [address] Nash.Pt is AOx4, forgetful at times, bed alarm activated for safety.VS stable,afebrile. Lungs CTA. Pt placed on telemonitor, SR 60`s-80`s.Pt denies SOB/CP.Abd SNT, +BS. LastBM 03/19.Pt is tolerating diet, denies N/V. Pt is voiding adequate amounts of CYU using a urinal, PVR 222 cc. Pt turned and repositioned in bed for comfort. Belongings/callbell within reach and is encouraged to use. Bed is in the lowest,locked position with 2 siderails up. Pt is resting comfortablyin bed at this time. P:Alteration in musculoskeletal status I:See interventions as listed above E:+PP, +CMS, +dorsi/plantar flexion to BLE. Aquacel dressing to the left knee CDI, BENITO drain in place with ,moderate amount of bloody output. Pt denies pain at this time, given scheduled Tylenol and PRN Tramadol initiated. Pt denies numbness/tingling/calf pain. Cboots for DVT prophylaxis. Progressing along plan of care.. Discharge Information Case Management Discharge Plan : Case Management Discharge Plan Data 03/21/2023 12:46 EDT Discharge Level of Care at Discharge Homehealth/VNA Discharge VNA/Hospice/Home Care [facility] [phone] Service Categories #1 Physical Therapy Service Comments #1 [facility] will contact you to set up a visit time after discharge. Please call [phone] if you don't hear from them. Patient Care team information Care Team Personnel Name: Maite Juárez RN Position: [facility] SN RN Member Role: Primary Care Nurse Name: Praful Torres III Position: Reference Physician Member Role: PCP Address: Address: [address] [place] [id number]- Name: Landy Nolan RN Position: S RN Member Role: Primary Care Nurse Name: Cynthia Herrera RN Position: S RN Member Role: Primary Care Nurse Name: Yani Crain RN Position: S RN Member Role: Primary Care Nurse Care Team Related Persons Name: NICOLE SWANN Address: [place] [address] Name: LUCIA SWANN Address: home [address] [place] [address]
--- OUTSIDE RECORDS SUMMARY | 2023-11-14 11:15 | XMS_ITS | Continuity of Care Document ---
Author Organization [facility] ter Address [address] [place] [id number]- Care Team Providers Care Giving Officer Name Role Phone Dereje THOMPSON, Vipul Gonzales Primary Care Physician [phone] Encounter [facility] Date(s): 03/21/23 - 04/20/[address] [address] Attending Physician: Not on Staff, Attending MD Admitting Physician: Not on Staff, Admitting MD Referring Physician: Not on Staff, Referring MD Allergies, Adverse Reactions, Alerts No Known [...] Refills, Maintenance, 03/22/23 7:37:00 EDT, ER Capsule, [facility], Partial fill upon patient request if [...] capsule, 0 Refills, Maintenance, 03/22/23 7:39:00EDT, Capsule, [facility], Partial fill upon patient [...] tablet = 20 mg, By Mouth, Daily, [id number], # 90 tablet, 1 Refills, Maintenance, 11/17/14 13:08:33, 1 tablet By Mouth Daily,x90 days,Instr:[id number] Start Date: 11/17/14 Stop Date: 05/16/15 Status: [...] Personnel Name: Dereje THOMPSON, Vipul Gonzales Position: [facility] Physician - Primary Care Member Role: PCP Address: Address: [address] [place] [id number] Name: Maite Juárez RN Position: [facility] SN RN Member Role: Primary Care Nurse Name: Landy Nolan RN Position: [facility] RN Member Role: Primary Care Nurse Name: Cynthia Herrera RN Position: [facility] RN Member Role: Primary Care Nurse Name: Yani Crain RN Position: [facility] RN Member Role: Primary Care Nurse Care Team Related Persons Name: NICOLE SWANN Address: [place] [address] Name: GLORIA SWANN Address: home [address] [place] [address]
== END 2023-11-13 13:45 | disposition home or self-care (01) ==
PROVIDERS: PCP Physician Assistant Medical; Visit Provider Surgery
PROC: (CPT 27634; principal; 2023-11-13 13:10)
DX: C49.22 Malignant neoplasm of connective and soft tissue of left lower limb, including hip (principal); I10 Essential (primary) hypertension
CPT/HCPCS: 27634; 88309; J0690; J2704; J2795; J3010

== ENCOUNTER → 2023-11-13 10:50 | Outpatient (BNV) | payer OTHER, SELFPAY | PROVIDERS: PCP Physician Assistant Medical; Visit Provider Surgery | DX: C49.22 Malignant neoplasm of connective and soft tissue of left lower limb, including hip (principal) | CPT/HCPCS: 27619 ==

== ENCOUNTER 2023-11-24 10:25 | Outpatient (AMB) | payer OTHER, SELFPAY ==
--- NOTE | 2023-11-24 10:30 | MHC.OFFVIS ---
Vital Signs 11/24/23 10:39 Height 5 ft 5 in Weight 146 lb BMI 24.3 BP 142/63 H Blood Pressure Location Lt brachial Position Sitting Pulse 59 Intake Visit Reasons: S/P WLE Lt. posterior calf tumor Intake Note: This patient presents for a post-op assessment status post wide local excision of left posterior calf tumor. Patient c/o; reports no complaints. Sexual Health Physician Required: No Accompanied by: Self / Same As Patient Allergies No Known Allergies Allergy (Verified 11/24/23 10:31) HPI Comments Details: Patient presents with his for follow-up. 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 Patient has no wound issues or complaints. Patient's pathology report demonstrates positive microscopic margins even after very extensive local wound excision.. [facility] Medical History History of gastric cancer Arthritis Cataracts, bilateral Dental root implant present (07/10/23) BPH (benign prostatic hyperplasia) History of nephrolithiasis DJD (degenerative joint disease) History of gastric cancer GERD (gastroesophageal reflux disease) Low back pain Vascular dementia PTSD (post-traumatic stress disorder) AAA (abdominal aortic aneurysm) Elevated cholesterol Acid reflux HTN (hypertension) Surgical History H/O heart artery stent Hx of colonoscopy History of ureteroscopy (~04/2023) History of total left knee replacement (TKR) (~03/2023) History of gastric surgery History of total right knee replacement (TKR) (~2012) Family History Father Colon cancer Social History Household Members: Spouse Housing: House Are you a primary patient care assistant to a significant other at home: No Do you presently have visiting nurse or other home services: No Alcohol intake: never Comment: counts correct Patient Tobacco Use Status: Never used Tobacco Physical Exam Vital Signs: Last Vital Signs Pulse 59 11/24/23 10:39 BP 142/63 H 11/24/23 10:39 BMI result Body Mass Index 24.3 Extrem Other: Incision clean dry and intact healing uneventfully. Significant tissue defect post resection demonstrated but well healed Assessment & Plan Assessment & Plan (1) Postop check: Code(s): Z09 - Encounter for follow-up examination after completed treatment for conditions other than malignant neoplasm Category: Surgical Plan Because of the persistent microscopic positive margins despite very wide local excision performed, the current plan is to refer the patient to a surgical oncologist. Patient happens to have had 1 at [facility] for an unrelated reason from several years ago.. The current plan is to arrange for an appointment with him once the insurance and referral issues have been completed. Patient and understand the reason for this because the patient requires far more extensive resection then can be provided here having already had a very wide local excision. All questions answered. Coding Level of Care Code Global (85290) Diagnoses Postop check Z09
[2023-11-24 10:39] VITALS: BP 142/63; PULSE 59; BMI 24.3
== END 2023-11-24 10:41 | disposition home or self-care (01) ==
PROVIDERS: PCP Physician Assistant Medical; Visit Provider Surgery
DX: Z09 Encounter for follow-up examination after completed treatment for conditions other than malignant neoplasm (principal)
CPT/HCPCS: 99024

== ENCOUNTER → 2023-11-24 10:25 | Outpatient (BNVA) | payer OTHER, SELFPAY | PROVIDERS: PCP Physician Assistant Medical; Visit Provider Surgery | DX: Z09 Encounter for follow-up examination after completed treatment for conditions other than malignant neoplasm (principal) | CPT/HCPCS: 99212 ==